=== PATIENT | female | born 1945 | race Caucasian/White ===

== ENCOUNTER 2019-03-13 14:08 | Day surgery (SDC) | payer MEDICARE ==
[~2019-03-13] VITALS: Ht 172.7 cm; Wt 73.5 kg
[2019-03-13 14:51] VITALS: BP 149/81
== END 2019-03-13 17:30 | disposition home or self-care (01) ==
LOC: OR 14:08
PROVIDERS: ATTEND Internal Medicine Gastroenterology
DX: K29.50 Unspecified chronic gastritis without bleeding (principal); K44.9 Diaphragmatic hernia without obstruction or gangrene; K86.1 Other chronic pancreatitis; K82.8 Other specified diseases of gallbladder; F41.9 Anxiety disorder, unspecified; Z79.82 Long term (current) use of aspirin; Z79.891 Long term (current) use of opiate analgesic; Z79.899 Other long term (current) drug therapy; Z87.891 Personal history of nicotine dependence; Z99.81 Dependence on supplemental oxygen; Z88.2 Allergy status to sulfonamides; Z88.8 Allergy status to other drugs, medicaments and biological substances; Z90.710 Acquired absence of both cervix and uterus; Z98.890 Other specified postprocedural states
CPT/HCPCS: 43239; 43259; 88305; 93005; J2704